=== PATIENT | male | born 1925 ===

== ENCOUNTER 2017-07-19 16:42 | Inpatient (IN) | payer MEDICARE ==
[~2017-07-19] VITALS: Ht 167.6 cm; Wt 67.6 kg
[2017-07-19 18:29] LABS: BASOPHILS 0.3 % (0-2); EOSINOPHILS 0.4 % (0-7); HEMATOCRIT 49.9 % (42.0-54.0); HEMOGLOBIN 16.4 g/dL (13.5-17.5); IMMATURE GRANULOCYTES 0.4 % (0-5); LYMPHOCYTES 8.8 % (15-50); MCH 27.9 pg (26.0-34.0); MCHC 32.9 g/dL (31.0-37.0); MCV 84.9 fL (80.0-100.0); MEAN PLATELET VOLUME 9.8 fL (7.4-10.4); MONOCYTES 8.8 % (2-11); NEUTROPHILS 81.3 % (40-80); PLATELET COUNT 245 10x3/uL (130-400); RBC 5.88 10x6/uL (4.20-6.10); RDW 15.7 % (11.5-14.5); WBC 13.5 10x3/uL (4.8-10.8)
[2017-07-19 18:50] LABS: ALBUMIN 3.6 g/dL (3.4-5.0); ANION GAP 13.2 mmol/L (8-16); BILIRUBIN - TOTAL 0.63 mg/dL (0.2-1.3); CALCIUM 9.1 mg/dL (8.5-10.1); CARBON DIOXIDE 28.2 mmol/L (21.0-32.0); CREATININE - SERUM 1.4 mg/dL (0.6-1.3); POTASSIUM - SERUM 4.4 mmol/L (3.5-5.1); PROTEIN - SERUM 7.7 g/dL (6.4-8.2)
[2017-07-20] VITALS (7 sets, daily range): BP systolic 118–156; BP diastolic 61–91; Ht 167.6 cm; Wt 67.6 kg
[2017-07-20] MEDS ORDERED: GAS-X80 MG PO (09:09)
[2017-07-20] MEDS ORDERED: NEXIUM40 MG (09:10)
[2017-07-20] MEDS ORDERED: HYDRALAZINE HCL25 MG PO (09:11)
[2017-07-20] MEDS ORDERED: B-12 DOTS500 MCG PO (09:14)
[2017-07-20] MEDS ORDERED: CALCIUM 500 +1 EAC3 PO (09:14)
[2017-07-20] MEDS ORDERED: VIC-FORTE CAPSUL1 MG PO (09:17)
[2017-07-20] MEDS ORDERED: MIRALAX17 GM PO (09:18)
[2017-07-20] MEDS ORDERED: ATIVAN1 MG PO (09:19)
[2017-07-20] MEDS ORDERED: AMITIZA24 MCG PO (09:24)
[2017-07-20] MEDS ORDERED: LYRICA75 MG PO (09:25)
[2017-07-20] MEDS ORDERED: DURICEF500 MG PO (09:27)
[2017-07-20] MEDS ORDERED: ARICEPT5 MG PO (09:30)
[2017-07-20] MEDS ORDERED: ELAVIL25 MG PO (09:31)
[2017-07-20] MEDS ORDERED: MELATONIN 3 MG1 TAB PO (09:31)
[2017-07-20] MEDS ORDERED: SYSTANE 0.3-0.4%5 ML (09:34)
[2017-07-20] MEDS ORDERED: MINERAL OIL25 ML PO (09:35)
[2017-07-20] MEDS ORDERED: CATAPRES0.1 MG PO (09:46)
[2017-07-20] MEDS ORDERED: NORCO 7.5/325 T1 TA1 PO (09:53)
--- NOTE | 2017-07-20 10:13 | NUR ---
CURTIS PARADA APN PAGED AT THIS TIME TO LET HER KNOW THAT PT IS CONTINUOUSLY REQUESTING HOME MEDICATIONS AND IS EXTREMELY ANXIOUS.
--- NOTE | 2017-07-20 10:20 | NUR ---
Patient Name: REYNA WORTHY Admission Status: ER Accout number: [id number] Admission Date: 07-19-2017 : 1925 Admission Diagnosis: Attending: MANJINDER BOLIVAR Current LOS: 1 Anticipated DC Date: 07-24-2017 Planned Disposition: Home Primary Insurance: MEDICARE A & B Discharge Planning Comments: CM MET WITH PATIENT AND SON (GRETA) REGARDING D/C NEEDS AND PLANS. PATIENT LIVES AT [facility] IN [place] AND WILL RETURN THERE AT DISCHARGE PER SON. PATIENT NEEDS HELP WITH MEDS, AND BATHING AT TIMES. PATIENT HAS A CANE, SHOWER SEAT, AND SCOOTER. PATIENTS PCP IS DR. HENAO AND PHARMACY IS [facility] AT [place]. CM WILL CONTINUE TO FOLLOW PATIENT WITH D/C NEEDS AND PLANS. HOME HEALTH WAS REFUSED AT THIS TIME. CM WILL CONTINUE TO FOLLOW PATIENT WITH D/C NEEDS AND PLANS. PCP DR. EARLENE MACEDO AT [place]- [phone] GRETA (SON) [phone] Funeral Home Attendant: Inez Meade Is the patient Alert and Oriented? Yes 0 * How many steps to enter\exit or inside your home? 0 0 * PCP DR. HENAO 0 * Pharmacy [facility] IN [place] 0 * Preadmission Environment Assisted Living 0 * Facility Name [facility] 0 * ADLs Partial Dependent 0 * Partial ADLs (Assistance needed) Bathing Medication Management 0 * Equipment Cane Shower Chair 0 * Other Equipment SCOOTER 0 * List name and contact numbers for known caregivers / representatives who currently or will assist patient after discharge: GRETA (SON) [phone] 0 * Community resources currently utilized Assisted Living 0 * Please name any agencies selected above. [facility] IN [place] 0 * Additional services required to return to the preadmission environment? Yes 0 * Can the patient safely return to the preadmission environment? Yes 0 * Has this patient been hospitalized within the prior 30 days at any hospital? No 0 Grand Total: 0
--- NOTE | 2017-07-20 11:25 | NUR ---
SCHEDULED MEDICATIONS ADMINISTERED WELL PRN NORCO FOR PAIN AT THIS TIME.
[2017-07-20 11:38] LABS: BASOPHILS 0.1 % (0-2); EOSINOPHILS 0.2 % (0-7); HEMATOCRIT 48.7 % (42.0-54.0); HEMOGLOBIN 16.1 g/dL (13.5-17.5); IMMATURE GRANULOCYTES 0.4 % (0-5); LYMPHOCYTES 11.7 % (15-50); MCH 27.7 pg (26.0-34.0); MCHC 33.1 g/dL (31.0-37.0); MCV 83.8 fL (80.0-100.0); MEAN PLATELET VOLUME 9.9 fL (7.4-10.4); MONOCYTES 8.3 % (2-11); NEUTROPHILS 79.3 % (40-80); PLATELET COUNT 249 10x3/uL (130-400); RBC 5.81 10x6/uL (4.20-6.10); RDW 15.6 % (11.5-14.5); WBC 13.9 10x3/uL (4.8-10.8)
[2017-07-20 12:09] LABS: ALBUMIN 3.5 g/dL (3.4-5.0); ANION GAP 19.3 mmol/L (8-16); BILIRUBIN - TOTAL 0.61 mg/dL (0.2-1.3); CALCIUM 8.9 mg/dL (8.5-10.1); CARBON DIOXIDE 22.6 mmol/L (21.0-32.0); CREATININE - SERUM 1.5 mg/dL (0.6-1.3); POTASSIUM - SERUM 3.9 mmol/L (3.5-5.1); PROTEIN - SERUM 7.5 g/dL (6.4-8.2)
--- NOTE | 2017-07-20 12:35 | NUR ---
PRN ATIVAN ADMINISTERED AT THIS TIME FOR ANXIETY.
--- NOTE | 2017-07-20 13:55 | NUR ---
SCHEDULED MEDICATIONS ADMINISTERED AT THIS TIME.
[2017-07-20 15:56] LABS: CREATINE KINASE 290 UL (21-232)
[2017-07-20 15:57] LABS: TROPONIN-I < 0.017 ng/mL (0.000-0.060)
--- NOTE | 2017-07-20 19:00 | NUR ---
REPORT RECEIVED AND CARE OF PT ASSUMED. PT SITTING UP AT BEDSIDE TABLE. IV IN RIGHT AC SALINE LOCKED[facility] 58 SINUS ARRYTHMIA AT THIS ASSESSMENT. WILL MONITOR CLOSELY FOR NEEDS.
--- NOTE | 2017-07-20 20:15 | NUR ---
HS MEDICATIONS GIVEN. WILL CONTINUE TO MONTIOR FOR NEEDS.
[2017-07-20 22:09] LABS: CKMB 6.3 U/L (0.0-3.6); CREATINE KINASE 345 UL (21-232)
--- NOTE | 2017-07-20 22:15 | NUR ---
CALLED [facility] - SHIRT TRIMMER FOR DR BOLIVAR- ELEVATED CK-MB AND CK. VITALS STABLE AND PT SLEEPING WITH UNLABORED BREATHING AT THIS TIME. NO NEW ORDERS...WILL DEFER TO ADVERTISING DESIGNER IN AM THAT IS CONSULTED.
--- NOTE | 2017-07-20 23:46 | NUR ---
PT RESTING ON LEFT SIDE WITH EASY RESPIRATIONS. SIDE RAILS UP X2 FOR SAFETY.
[2017-07-21 01:03] VITALS: BP 128/62
[2017-07-21 02:55] LABS: BASOPHILS 0.4 % (0-2); EOSINOPHILS 1.6 % (0-7); HEMATOCRIT 44.9 % (42.0-54.0); HEMOGLOBIN 14.7 g/dL (13.5-17.5); IMMATURE GRANULOCYTES 0.6 % (0-5); LYMPHOCYTES 20.5 % (15-50); MCH 27.5 pg (26.0-34.0); MCHC 32.7 g/dL (31.0-37.0); MCV 84.1 fL (80.0-100.0); MEAN PLATELET VOLUME 9.6 fL (7.4-10.4); MONOCYTES 14.2 % (2-11); NEUTROPHILS 62.7 % (40-80); PLATELET COUNT 225 10x3/uL (130-400); RBC 5.34 10x6/uL (4.20-6.10); RDW 15.6 % (11.5-14.5)
[2017-07-21 02:56] LABS: WBC 8.2 10x3/uL (4.8-10.8)
[2017-07-21 03:16] LABS: ALBUMIN 3.2 g/dL (3.4-5.0); ALKALINE PHOSPHATASE 77 U/L (46-116); ALT (SGPT) 16 U/L (10-68); BILIRUBIN - TOTAL 0.52 mg/dL (0.2-1.3); CALC OSMOLALITY 288 mosm/kg (275-300); CALCIUM 8.8 mg/dL (8.5-10.1); CARBON DIOXIDE 24.9 mmol/L (21.0-32.0); CHLORIDE - SERUM 106 mmol/L (98-107); CKMB 6.1 U/L (0.0-3.6); CREATINE KINASE 339 UL (21-232); CREATININE - SERUM 1.5 mg/dL (0.6-1.3); GLUCOSE 101 mg/dL (74-106); PROTEIN - SERUM 6.5 g/dL (6.4-8.2); SODIUM 144 mmol/L (136-145); UREA NITROGEN 17 mg/dL (7-18); eGFR NON AFRICAN AMERICAN 47 mL/min (90-120)
[2017-07-21 03:17] LABS: TROPONIN-I 0.017 ng/mL (0.000-0.060)
[2017-07-21 05:24] VITALS: BP 136/61
--- NOTE | 2017-07-21 08:00 | NUR ---
ASSESSMENT PER FLOW SHEET.PT WITHOUT DISRESS.ASSIST UP TO BEDSIDE FOR MEAL TRAY.CALL LIGHT IN REACH
[2017-07-21 08:26] VITALS: BP 126/75
--- NOTE | 2017-07-21 11:58 | NUR ---
RESTING ON BED.STATES PAIN BETTER. FAMILY AT BEDSIDE.MONITOR
[2017-07-21 13:03] VITALS: BP 120/57
--- NOTE | 2017-07-21 14:54 | NUR ---
SITTING UP IN CHAIR,WITHOUT NEEDS.
[2017-07-21 16:10] VITALS: BP 128/67
[2017-07-22] VITALS: BP 116/69
[2017-07-22 04:00] VITALS: BP 125/60
[2017-07-22 05:34] LABS: BASOPHILS 0.6 % (0-2); EOSINOPHILS 2.9 % (0-7); HEMOGLOBIN 14.4 g/dL (13.5-17.5); IMMATURE GRANULOCYTES 0.6 % (0-5); MCH 27.5 pg (26.0-34.0); MCHC 32.7 g/dL (31.0-37.0); MCV 84.1 fL (80.0-100.0); MONOCYTES 14.7 % (2-11); NEUTROPHILS 67.2 % (40-80); PLATELET COUNT 246 10x3/uL (130-400); RBC 5.23 10x6/uL (4.20-6.10); WBC 7.1 10x3/uL (4.8-10.8)
[2017-07-22 05:55] LABS: ALBUMIN 2.9 g/dL (3.4-5.0); ANION GAP 11.4 mmol/L (8-16); BILIRUBIN - TOTAL 0.4 mg/dL (0.2-1.3); CALCIUM 8.8 mg/dL (8.5-10.1); CARBON DIOXIDE 27.8 mmol/L (21.0-32.0); CREATININE - SERUM 1.5 mg/dL (0.6-1.3); POTASSIUM - SERUM 4.2 mmol/L (3.5-5.1); PROTEIN - SERUM 6.3 g/dL (6.4-8.2)
[2017-07-22 10:52] VITALS: BP 135/61
[2017-07-22 12:53] VITALS: BP 137/70
[2017-07-22] MEDS ORDERED: Levaquin PO (14:19)
--- NOTE | 2017-07-22 16:31 | NUR ---
IV DCD WITH CATH TIP INTACT.DISCHARGE INSTRUCTIONS,STATES UNDERSTANDING.
--- NOTE | 2017-07-22 16:32 | NUR ---
LEFT UNIT VIA WHEELCHAIR FOR TRANSPORT HOME
--- NOTE | 2017-07-22 17:18 | NUR ---
LATE ENTRY 1530 [address] SOLOMON REGARDING PT'S NEBULIZER. SHE ALSO SPOKE WITH THE PATIENT. HE REFUSES THE NEBULIZER. DISCHARGED TO HOME TODAY. HAD DECLINED ANY HOME HEALTH SERVICES.
--- NOTE | 2017-07-24 08:17 | CN ---
PATIENT NAME:REYNA WORTHY MEDICAL RECORD: [id number] : [birth year] LOCATION:[id number] ADMIT DATE: 07/19/17 ACCOUNT: [id number] CONSULTING PHYSICIAN: SARAH MOSLEY MD REFERRING PHYSICIAN: MANJINDER BOLIVAR MD DATE OF CONSULTATION: 07/20/2017 HISTORY OF PRESENT ILLNESS: An 89-year-old gentleman with a history of coronary artery disease, status post coronary bypass grafting, admitted with pneumonitis and classic pleuritic pain, worse when lying flat, worse with taking a deep breath. It came on fairly quickly over the last 48 hours. Currently, pain is almost completely resolved, and reports breathing easier. We are asked to see him concerning his cardiovascular status. PAST MEDICAL HISTORY: Includes: 1. History of hypertension. 2. Hyperlipidemia. 3. Coronary artery disease as described above. 4. Gastroesophageal reflux disease. ALLERGIES: PENICILLIN AND BETADINE. MEDICATIONS: Include: 1. Hydralazine 25 mg p.o. t.i.d. 2. Lyrica 75 p.o. b.i.d. 3. Amitriptyline 25 at bedtime. 4. Princess Anne 7.5/325 one q.4 hours p.r.n. 5. Ativan 1 mg p.o. b.i.d. 6. Nexium 40 mg p.o. daily. SOCIAL HISTORY: He lives in [facility]. He is a nonsmoker. He does have good family support. REVIEW OF SYSTEMS: The patient reports easy bruising but reports no swollen glands. The patient reports no fever, no night sweats, no significant weight gain, no significant weight loss. No significant exercise tolerance. The patient reports no dry eyes, no irritation, no vision change. Patient reports no difficulty hearing and no ear pain. Patient reports no frequent nose bleeds or nose and sinus problems. Patient reports on arm pain on exertion. No shortness of breath while lying down. No history of heart murmur. Patient reports no cough, no wheezing or coughing up blood. Patient reports no abdominal pain, no vomiting. Normal appetite. No diarrhea and not vomiting blood. No nausea and no constipation. Patient reports no incontinence. No difficulty urinating. No hematuria. No increased frequency. Patient reports no muscle aches. No weakness, no arthralgias, no back pain. No swelling of the extremities. Patient reports no abnormal mole, no jaundice, no rashes. Reports no loss of consciousness. No weakness and no numbness. No seizures, dizziness, or headaches. The patient reports no depression, no sleep disturbance, feeling safe in a relationship and no alcohol abuse. Patient reports on fatigue. Reports no runny nose or sinus pressure. No itching, no hives, and no frequent sneezing. PHYSICAL EXAMINATION: GENERAL: Pleasant gentleman in no acute distress, appears stated age. VITAL SIGNS: Blood pressure 156/91, pulse 90 and regular. CONSULT REPORT [id number] REYNA WORTHY HEENT: Normocephalic, atraumatic. NECK: No JVD or bruit. HEART: Regular, II/ systolic ejection murmur. LUNGS: Clear. ABDOMEN: Soft, nontender. EXTREMITIES: Pulses 2+. No edema. DIAGNOSTIC DATA: ECG shows poor R-wave progression, no acute ST-T changes. IMPRESSION: Pleuritis secondary to pneumonitis, the patient reports improving fairly rapidly. We will check echocardiographic study. Thank you for the opportunity to participate in the care of this gentleman. TRANSINT:[id number] Voice Confirmation ID: [id number] DOCUMENT ID: [id number] SARAH MOSLEY MD at 0817 CC: [id number] DICTATION DATE: 07/20/17 1510 PANTRY ATTENDANT: 07/20/17 1724 DIS IN 07/22/17 [facility] [address] [id number]
--- NOTE | 2017-08-25 12:26 | DS ---
PATIENT:REYNA WORTHY :[birth year] MEDICAL RECORD: [id number] DISCHARGE SUMMARY ADMISSION DATE: 07/19/17 DISCHARGE DATE: 07/22/17 DATE OF ADMISSION: 07/19/2017 DATE OF DISCHARGE: 07/22/2017 DIAGNOSES: 1. Right lower lobe pneumonia. 2. Pleuritic chest pain. 3. Leukocytosis. 4. Hypertension. 5. Gastroesophageal reflux disease. 6. Irritable bowel syndrome, which is chronic. 7. Neuropathy. 8. Chronic kidney disease. 9. Allergic rhinitis. CONSULTS: 1. Dr. Mclain 2. Dr. Medina IMAGES AND STUDIES: CT of the chest, which showed: 1. Large hiatal hernia. 2. Subcentimeter pulmonary nodules measuring 7 mm in size. 3. Cystic lesion on the pancreas. 4. Diverticulosis. HOSPITAL COURSE: This is an 89-year-old male with multiple comorbid conditions, who was admitted with leukocytosis, white count of 39, who had failed outpatient antibiotics for an infiltrate. The patient was placed in the inpatient setting and started on broad-spectrum antibiotic therapy with coverage for gram-negative rods. Cardiology was consulted during the patient's hospitalization. It was felt that his chest discomfort was pleuritic in nature due to his pneumonitis. It improved with aggressive pulmonary toilet. He had no significant EKG changes. His clinical condition improved. He was thought to be stable to discharge to [facility], which was his home to self care with activities as tolerated, to follow up with Dr. Grover. He would have repeat chest x-ray in 8 weeks and [facility] would follow the patient in the outpatient setting as well. See med rec. TRANSINT:[id number] Voice Confirmation ID: [id number] DOCUMENT ID: [id number] Dictated By: NICOLASA PEGUERO I have interviewed/examined the above patient and agree with these documented findings. DISCHARGE SUMMARY REPORT [id number] SUGEY WORTHYMANJINDER CHRISTIE MD at 1226 at 1433 CC: [id number] DICTATION DATE: 08/16/17 1707 VOCATIONAL REHAB CONSULTANT: 08/17/17 0940 DIS IN 07/22/17 [place] [id number] [place] [id number]
== END 2017-07-22 16:33 | disposition home or self-care (01) | DRG 194 ==
LOC: D.ER 16:42 → D.MS 20:02
PROVIDERS: Physician Assistant; ADMIT Family Medicine
DX: J18.9 Pneumonia, unspecified organism (principal); J98.11 Atelectasis; J90 Pleural effusion, not elsewhere classified; K86.3 Pseudocyst of pancreas; J30.9 Allergic rhinitis, unspecified; I12.9 Hypertensive chronic kidney disease with stage 1 through stage 4 chronic kidney disease, or unspecified chronic kidney disease; N18.9 Chronic kidney disease, unspecified; G62.9 Polyneuropathy, unspecified; F41.9 Anxiety disorder, unspecified; E78.5 Hyperlipidemia, unspecified; I25.10 Atherosclerotic heart disease of native coronary artery without angina pectoris; K58.1 Irritable bowel syndrome with constipation; K44.9 Diaphragmatic hernia without obstruction or gangrene; K76.89 Other specified diseases of liver